=== PATIENT | female | born 1950 | race Caucasian/White ===

== ENCOUNTER → 2019-05-13 | Outpatient (CLI) | payer OTHER, BC | LOC: SJCVCIMAG 14:30 → SJCVC 16:57 | DX: I47.1 Supraventricular tachycardia (principal); I10 Essential (primary) hypertension; Z98.890 Other specified postprocedural states; Z90.49 Acquired absence of other specified parts of digestive tract; Z79.899 Other long term (current) drug therapy ==

== ENCOUNTER → 2019-06-20 | Outpatient (CLI) | payer OTHER, BC | LOC: SJCVCIMAG 09:42 | DX: I35.1 Nonrheumatic aortic (valve) insufficiency (principal); I47.1 Supraventricular tachycardia; I10 Essential (primary) hypertension; I49.9 Cardiac arrhythmia, unspecified ==

== ENCOUNTER → 2020-05-14 | Outpatient (CLI) | payer OTHER | LOC: CAT 11:23 | PROVIDERS: ATTEND Internal Medicine | DX: Z13.6 Encounter for screening for cardiovascular disorders (principal); I25.10 Atherosclerotic heart disease of native coronary artery without angina pectoris; E78.00 Pure hypercholesterolemia, unspecified ==